=== PATIENT | female | born 1970 | race Caucasian/White ===

== ENCOUNTER 2023-04-30 20:20 | Emergency (ER) | payer OTHER, SELFPAY ==
[2023-04-30 20:25] VITALS: BP 124/82
[2023-04-30 20:57] LABS: % Basophils 0.7 % (0-2); % Eosinophils 0.7 % (0-6); % Monocytes 10.7 % (1.7-9.3); % Neutrophils 48.9 % (42.2-75.2); Absolute Lymphocytes 1.6 10^3/uL (1.2-3.4); Absolute Monocytes 0.4 10^3/uL (0.1-0.6); Hematocrit 42.8 % (37.0-47.0); Hemoglobin 15.1 g/dL (12.0-16.0); Mean Corp Hgb Conc. 35.3 g/dL (33.0-37.0); Mean Corpuscular Hgb 29.4 pg (27.0-31.0); Mean Corpuscular Volume 83.3 fL (81.0-99.0); Mean Platelet Volume 10.2 fL (7.4-10.4); Nucleated Red Blood Cells % 0 %; Platelet Count 217 10^3/uL (130-400); Red Blood Cell Count 5.14 10^6/uL (4.20-5.40); Red Cell Dist. Width 11.8 % (11.5-14.5)
[2023-04-30 20:58] LABS: Urine Albumin Trace (Neg - Trace); Urine Bilirubin Negative (Negative); Urine Character Clear (Clear); Urine Color Yellow; Urine Glucose Negative (Negative); Urine Ketone 2+ (Negative); Urine Leukocyte Trace (Negative); Urine Nitrite Negative (Negative); Urine Occult Blood Negative (Negative); Urine Specific Gravity 1.025 (<1.030); Urine Urobilinogen Negative (Neg - 1+)
[2023-04-30 21:05] LABS: Urine Hyaline Cast 0-2 /LPF (0-2); Urine Red Blood Cell None Seen /HPF (0-2); Urine White Cell 0-2 /HPF (0-5)
[2023-04-30 21:07] LABS: Lactic Acid 1.8 mmol/L (0.7-2.0)
[2023-04-30 21:12] LABS: ALT (SGPT) 66 U/L (0-35); AST (SGOT) 67 U/L (14-36); Albumin 4.1 g/dl (3.5-5.0); Alkaline Phosphatase 72 U/L (38-126); Blood Urea Nitrogen 16 mg/dl (7-17); Calcium 9.3 mg/dl (8.4-10.2); Carbon Dioxide 27 mmol/L (22-30); Chloride 97 mmol/L (98-107); Glucose 92 mg/dl (70-99); Potassium 4.3 mmol/L (3.5-5.1); Sodium 134 mmol/L (135-145); Total Bilirubin 0.7 mg/dl (0.2-1.3); Total Protein 7.1 g/dl (6.3-8.2); eGFR > 60.00
[2023-04-30 21:13] LABS: COVID-19 Antigen Negative (Negative)
[2023-04-30 22:44] VITALS: BP 112/93
[2023-04-30] MEDS: TYLENOL 1000 MG PO (22:51)
[2023-04-30] MEDS: MOTRIN 600 MG PO (23:34)
[2023-04-30] MEDS: NSS 1000 IV (23:38)
--- NOTE | 2023-04-30 23:42 | ED.GENMED ---
History of Present Illness
<Nga Castillo PA-C - Last Filed: 05/02/23 07:26>
General
Chief Complaint: Fever
Source: patient
Exam Limitations: none
Time Seen by Provider: 04/30/23 22:56
Nursing documentation reviewed up to this point in time: agreed with
Travel History
Have you had any contact with someone who has COVID-19?: No
Do you have any symptoms of coronavirus? Fever > 100 degrees, chills, cough, shortness of breath, sore throat, loss of taste or smell, muscle aches, or headache?: Yes
Symptoms:: Fever
History of Present Illness
History of Present Illness:
PT IS A 52 Y/O F with no sig pmh
here with 4 days of fever, chills, headache, sore throat, cough, bodyaches
and then the past 2 days she has had some RLQ pain and right sided back pain
she also feels her chest is tight at times with a cough
pt is allergic to aspirin (anaphylaxis) but can take motrin
pt has not tried any motrin today or all week
she called her PCP yesteday who called in zithromax without seeing her
and then today whens he still had fever she went to urgent care. the urgentcare did an exam and told her to come to R/O appe.
pt was unaware she has the flu.
she did not get a flu shot this year.
no sob, voimting, diarhrea, dysuria, hematuria.
Past History
<gNa Castillo PA-C - Last Filed: 05/02/23 07:26>
Past History
ED Past Medical History: None
ED Past Surgical History: Gynecological (Hysterectomy) and Other (Sinus surgery)
Social History
Tobacco: Non-smoker
Alcohol: Occasional
Personal:
Living: with family
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
Family History
Family History: Other (Mother, diabetic had cardiac bypass surgery age 58); Negative Early CAD
Review of Systems
<Nga Castillo PA-C - Last Filed: 05/02/23 07:26>
Review of Systems
Allergies reviewed?: Yes
All Other Systems: Not applicable
Phy Exam
<Nga Castillo PA-C - Last Filed: 05/02/23 07:26>
Physical Exam
Physical Exam:
GENERAL: Alert , in no apparent distressl, nontoxic
EYE: pupils equal and reactive
NECK: Supple
ENT: b/l TM s clear, pharynx erythematous but no tonsillar hypertrophy or exudates
CARDIAC: Regular rate and rhythm, no edema
LUNGS: Clear breath sounds bilaterally, no acute respiratory distress, no wheezes/rales/rhonchi, occ cough
ABDOMEN: Soft, nondistended, flat, normal bowel sounds; tender RLQ mcburney's point with voluntary guarding
no rebound
back nontender, no cva tendenress
NEUROLOGICAL: Alert and oriented, no focal neuro deficits
SKIN: Warm and dry, skin intact.
MUSCULOSKELETAL: No edema, well perfused.
PSYCH: Normal and appropriate interaction.
Course
<Nga Castillo PA-C - Last Filed: 05/02/23 07:26>
Orders/Labs/Results
Orders:
Orders
04/30/23 20:31
Electrocardiogram (*1) Urgent
Reason for Study: Other
Other Reason for Exam: Possible Sepsis
Cardiac Monitoring- Treatment ONCE
IV Insert/Care/Rem.- Treatment PRN
O2 Therapy [RESP] Urgent
Titrate/Wean O2 to maintain O2 sat greater than (%): 93
Special Instructions: TO MAINTAIN CONTINUOUS O2 SATS > OR = 93%
Pulse Ox/cont/shift [RESP] Urgent
Quantity: 1
Special Instructions: CONTINUOUS
04/30/23 20:32
EKG- Treatment ONCE
04/30/23 20:46
COVID-19 Antigen Urgent
Source: Nasal Swab
Complete Blood Count/With Diff Urgent
Comprehensive Metabolic Panel Urgent
Lactic Acid Q4H
Comment: ON ICE, CANCEL 2ND ORDER IF FIRST LACTIC ACID LEVEL <2
Blood Culture Q30M
SHANDRA Source: Blood/Venous
Specimen Description:
Comment: FROM 2 SEPARATE SITES
INF RAPID [Influenza A+B Rapid Molecular] Urgent
SHANDRA Source: Nasal Swab
Specimen Description:
04/30/23 20:49
Urinalysis Reflex To Culture Urgent
Date Specimen was Collected: 04/30/23
Time Specimen was Collected: 20:32
Urine Microscopic Reflex Cult Urgent
04/30/23 22:48
Acetaminophen [Tylenol] 1,000 mg .ROUTE .STK-MED ONE
04/30/23 22:49
Acetaminophen [Tylenol] 500 mg .ROUTE .STK-MED ONE
04/30/23 22:51
Acetaminophen [Tylenol] 1,000 mg PO NOW STA
04/30/23 23:20
0.9% Sodium Chloride 1000 ml [Nss] 1,000 ml IV BOLUS
Ibuprofen [Motrin] 600 mg PO NOW STA
04/30/23 23:42
Blood Culture Q30M
SHANDRA Source: Blood/Venous
Specimen Description:
Comment: FROM 2 SEPARATE SITES
05/01/23 00:01
CR Chest - 2 Views Urgent
Reason For Exam: cough, fever, flu
05/01/23 00:15
CT Abd/Pel (IV only)-DH only Urgent
Reason For Exam: RLQ PAIN, FEVER, influenza
Abnormal Lab Results
04/30/23 04/30/23
20:46 20:49
WBC 4.0 L 10^3/uL
(4.8-10.8)
Monocytes % 10.7 H %
(1.7-9.3)
Sodium 134 L mmol/L
(135-145)
Chloride 97 L mmol/L
(98-107)
AST 67 H U/L
(14-36)
ALT 66 H U/L
(0-35)
Urine Ketones 2+ A
(Negative)
Leukocyte Esterase Rfl Trace A
(Negative)
04/30/23 20:46
04/30/23 20:46
Vital Signs
Initial and Last Documented VS:
Initial Vital Signs
Temp Pulse Resp BP Pulse Ox
99.7 F 77 18 124/82 99
04/30/23 20:25 04/30/23 20:25 04/30/23 20:25 04/30/23 20:25 04/30/23 20:25
Last Documented Vital Signs
Temp Pulse Resp BP Pulse Ox
99.9 F 69 18 110/64 93
04/30/23 23:57 05/01/23 01:08 05/01/23 01:08 05/01/23 01:08 05/01/23 01:08
<Gavin James, DO - Last Filed: 05/01/23 01:15>
Orders/Labs/Results
Orders:
Orders
04/30/23 20:31
Electrocardiogram (*1) Urgent
Reason for Study: Other
Other Reason for Exam: Possible Sepsis
Cardiac Monitoring- Treatment ONCE
IV Insert/Care/Rem.- Treatment PRN
O2 Therapy [RESP] Urgent
Titrate/Wean O2 to maintain O2 sat greater than (%): 93
Special Instructions: TO MAINTAIN CONTINUOUS O2 SATS > OR = 93%
Pulse Ox/cont/shift [RESP] Urgent
Quantity: 1
Special Instructions: CONTINUOUS
04/30/23 20:32
EKG- Treatment ONCE
04/30/23 20:46
COVID-19 Antigen Urgent
Source: Nasal Swab
Complete Blood Count/With Diff Urgent
Comprehensive Metabolic Panel Urgent
Lactic Acid Q4H
Comment: ON ICE, CANCEL 2ND ORDER IF FIRST LACTIC ACID LEVEL <2
Blood Culture Q30M
SHANDRA Source: Blood/Venous
Specimen Description:
Comment: FROM 2 SEPARATE SITES
INF RAPID [Influenza A+B Rapid Molecular] Urgent
SHANDRA Source: Nasal Swab
Specimen Description:
04/30/23 20:49
Urinalysis Reflex To Culture Urgent
Date Specimen was Collected: 04/30/23
Time Specimen was Collected: 20:32
Urine Microscopic Reflex Cult Urgent
04/30/23 22:48
Acetaminophen [Tylenol] 1,000 mg .ROUTE .STK-MED ONE
04/30/23 22:49
Acetaminophen [Tylenol] 500 mg .ROUTE .STK-MED ONE
04/30/23 22:51
Acetaminophen [Tylenol] 1,000 mg PO NOW STA
04/30/23 23:20
0.9% Sodium Chloride 1000 ml [Nss] 1,000 ml IV BOLUS
Ibuprofen [Motrin] 600 mg PO NOW STA
04/30/23 23:42
Blood Culture Q30M
SHANDRA Source: Blood/Venous
Specimen Description:
Comment: FROM 2 SEPARATE SITES
05/01/23 00:01
CR Chest - 2 Views Urgent
Reason For Exam: cough, fever, flu
05/01/23 00:15
CT Abd/Pel (IV only)-DH only Urgent
Reason For Exam: RLQ PAIN, FEVER, influenza
Abnormal Lab Results
04/30/23 04/30/23
20:46 20:49
WBC 4.0 L 10^3/uL
(4.8-10.8)
Monocytes % 10.7 H %
(1.7-9.3)
Sodium 134 L mmol/L
(135-145)
Chloride 97 L mmol/L
(98-107)
AST 67 H U/L
(14-36)
ALT 66 H U/L
(0-35)
Urine Ketones 2+ A
(Negative)
Leukocyte Esterase Rfl Trace A
(Negative)
04/30/23 20:46
04/30/23 20:46
Vital Signs
Initial and Last Documented VS:
Initial Vital Signs
Temp Pulse Resp BP Pulse Ox
99.7 F 77 18 124/82 99
04/30/23 20:25 04/30/23 20:25 04/30/23 20:25 04/30/23 20:25 04/30/23 20:25
Last Documented Vital Signs
Temp Pulse Resp BP Pulse Ox
99.9 F 69 18 110/64 93
04/30/23 23:57 05/01/23 01:08 05/01/23 01:08 05/01/23 01:08 05/01/23 01:08
<Nga Castillo PA-C - Last Filed: 05/02/23 07:26>
MDM/Problems Addressed
Differential Diagnosis Includes:
FLU, PNA, APPE, EPIPLOIC APPENDIGITIS, MESENTERIC LYMPHADENOPATHY
MDM/Problems Addressed:
52 y/o F with fever x 4 days
sore throat, cough, headache
and now rlq pain
tender on exam focally
ua ketones, no infex
wbc 4 and lft s c/w viral infection
flu pos
given tenderness in RLQ, will eval with CT.
anticipate pt may have mesenteric lympahdenitis or othewrise self limiting cause
if neg, d/c home.
<Nga Castillo PA-C - Last Filed: 05/02/23 07:26>
*Critical Care Note
Total Time (30-74mins, 75-104mins- exclusive of procedures): Not Applicable
ED Attending Note
<Nga Castillo PA-C - Last Filed: 05/02/23 07:26>
-
Portions of this chart may have been created with voice recognition software.� Occasional wrong word or��sound alike� substitutions may have occurred due to the inherent limitations of voice recognition software.
<Gavin James DO - Last Filed: 05/01/23 01:15>
ED Attending Note
Patient seen and examined by attending physician: Yes
I performed the substantive portion of visit, reviewed & personally made and approve the management plan that is documented in note by myself or ERICA.: Yes
ED Attending Note:
52-year-old female with fever, body aches, and right lower quadrant abdominal pain. Sent in by urgent care. Patient resting comfortably at time of my visit. We did discuss lab work and CT scan findings. Discussed return to ER instructions with
patient and . They have no further questions at this time. Patient was seen in conjunction with LASHELL Gunter. I have reviewed and agree with the history and treatment plan presented. On my independent physical exam, patient is awake,
alert, and oriented x3, minimal acute distress. No respiratory distress.
Discharge Plan
Departure
Patient Disposition: Home (Routine Discharge)
Date of Disposition: 05/01/23
Time of Disposition: 01:12
Patient with high blood pressure during this ER visit?: No
Condition: Fair
Discharge Problem:
Influenza A
Instructions: Flu, Adult (DC), Viral Syndrome (DC)
Prescriptions:
No Action
No Current Medications
0
Referrals:
Mo Cordero DO [Family Provider] - Follow up in 2-3 days
Activity Restrictions/Additional Instructions:
YOU HAVE INFLUENZA
TAKE TYLENOL EVERY 6 HORUS FOR FEVERS
YOU CAN ALSO TAKE MOTRIN EVERY 8H OURS WELL FOR ACHES AND FEVERS
YOUR BLOOD WORK IS REASSURING FOR YOU HAVING A VIRAL INFECTION
YOUR CHEST XRAY APPEARS NORMAL, NO PNEUMONIA
FOLLOW UP WITH YOUR FAMILY DOCTOR NEEDED
WE WOULD EXPECT FEVER SHOULD BREAK USUALY AROUND DAY 5 OR 6.
RETURN FOR ANY COCNERNS.
Interventions
Interventions:
*Risk Screen - Suicide Last Done: 04/30/23 20:25
*General Assessment Last Done: 04/30/23 20:25
*Neglect/Abuse Screening Last Done: 04/30/23 20:25
*ED COVID-19 Vaccine History Last Done: 04/30/23 20:25
*Nursing Disposition Last Done: 05/01/23 01:18
ED- Neurological Assessment Last Done: 04/30/23 22:46
ED-Skin Assessment Last Done: 04/30/23 22:46
Discharge Date and Time
Discharge Date/Time: 05/01/23 01:21
[2023-04-30 23:57] VITALS: BP 117/74
[2023-05-01 00:38] VITALS: BP 107/69
[2023-05-01 01:08] VITALS: BP 110/64
== END 2023-05-01 01:21 | disposition home or self-care (01) ==
LOC: EMR 20:20
PROVIDERS: Emergency Medicine; EMERGENCY PHYSICIAN Student in an Organized Health Care Education/Training Program; FAMILY PHYSICIAN Family Medicine
DX: J10.1 Influenza due to other identified influenza virus with other respiratory manifestations (principal)
CPT/HCPCS: 99285; 96360; 71046; 74177; 80053; 81003; 81015; 83605; 85025; 87040; 87502; 87811; 93005; Q9967

== ENCOUNTER → 2024-08-23 08:09 | Outpatient (REF) | payer OTHER, SELFPAY | LOC: HWWDC 08:09 | PROVIDERS: ATTENDING PHYSICIAN Nurse Practitioner Family | DX: Z12.31 Encounter for screening mammogram for malignant neoplasm of breast (principal); Z13.820 Encounter for screening for osteoporosis | CPT/HCPCS: 77063; 77067; 77080 ==

== ENCOUNTER → 2024-11-01 07:05 | Outpatient (REF) | payer OTHER, SELFPAY ==
[2024-11-01 08:58] LABS: Calcium 10.2 mg/dl (8.4-10.2)
[2024-11-01 09:59] LABS: Vitamin D, 25-OH*** 54.1 ng/mL (30-80)
== END ==
LOC: HWRAD 07:05
PROVIDERS: ATTENDING PHYSICIAN Nurse Practitioner Family; FAMILY PHYSICIAN Family Medicine
DX: M81.0 Age-related osteoporosis without current pathological fracture (principal); E55.9 Vitamin D deficiency, unspecified; E58 Dietary calcium deficiency; R10.10 Upper abdominal pain, unspecified
CPT/HCPCS: 36415; 76700; 82306; 82330; 82652; 83970

== ENCOUNTER 2024-12-28 06:20 | Day surgery (SDC) | payer OTHER, SELFPAY | END 2024-12-28 10:40 | disposition home or self-care (01) | LOC: GI 06:20 | PROVIDERS: ATTENDING PHYSICIAN Internal Medicine Gastroenterology | DX: Z12.11 Encounter for screening for malignant neoplasm of colon (principal); D12.4 Benign neoplasm of descending colon; K57.30 Diverticulosis of large intestine without perforation or abscess without bleeding; Z86.0100 Personal history of colon polyps, unspecified; K64.9 Unspecified hemorrhoids | CPT/HCPCS: 45385; 88305 ==